=== PATIENT | male | born 2005 | race Caucasian/White ===

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

== ENCOUNTER 2023-12-03 15:26 | Emergency (ER) | payer BC, SELFPAY ==
--- NOTE | ~2023-12-03 | XR_ITS ---
EXAMINATION: XR finger 2nd LT min 2V DATE: 12/03/2023 15:47 INDICATION: Pain at the left second digit post possible injury TECHNIQUE: Dorsal palmar, lateral and oblique views of the left second digit were obtained COMPARISON: None FINDINGS: 2.5 mm proximal distraction of a tiny flake-like volar plate avulsion fracture at the base of the lef t second middle phalanx. No other fractures identified. Joint spaces are normal. Prominent soft tissu e swelling about the base of the second digit. IMPRESSION: 1. Mild distraction of a tiny flake-like volar plate avulsion fracture arising from the base of the l eft second middle phalanx. Reviewed, dictated and finalized at location A. [employer] IMPRESSION: 1. Mild distraction of a tiny flake-like volar plate avulsion fracture arising from the base of the left second middle phalanx.
[2023-12-03 15:36] VITALS: BP 150/83; PULSE 90; RESP 16; TEMP 36.8; O2SAT 99
--- NOTE | 2023-12-03 15:57 | ED.UPPEXIN ---
HPI - Extremity Injury (Upper) General Chief Complaint: Extremity Injury, Upper Stated Complaint: left finger injury Time Seen by Provider: 12/03/23 15:57 Source: patient Mode of arrival: ambulatory Limitations: no limitations History of Present Illness HPI narrative: 18-year-old male presents with complaint of left index finger pain and swelling. States that he was playing basketball today with friends and another player's knee hit his left index finger. States the finger looked dislocated but thinks went back into place on its own. Range of motion decreased due to pain and swelling. Distal neurovascular intact. All systems reviewed and negative except as noted above. Related Data Home Medications Medication Instructions Recorded Confirmed folic acid 1 mg tablet 1 mg PO DAILY 12/03/23 12/03/23 risankizumab-rzaa 360 mg/2.4 mL 360 mg subcut MONTHLY 12/03/23 12/03/23 (150 mg/mL) subcut wearable injector (Skyrizi) Allergies Allergy/AdvReac Type Severity Reaction Status Date / Time No Known Allergies Allergy Verified 12/03/23 16:01 Review of Systems Review of Systems: CONSTITUTIONAL: Denies fever, chills, or sweats. EYES: Denies visual changes, redness, or discharge. ENT: Denies rhinorrhea, congestion, sore throat, or otalgia. CARDIOVASCULAR: Denies chest pain, palpitations, or edema. RESPIRATORY: Denies cough or dyspnea. GASTROINTESTINAL: Denies abdominal pain, nausea, vomiting, or diarrhea. GENITOURINARY: Denies dysuria or hematuria. SKIN: Denies rash or itching. MUSCULOSKELETAL: Denies back pain, joint pain, or myalgia. Reports pain and swelling to left index finger. NEUROLOGIC: Denies headache, numbness, or weakness. PSYCHIATRIC: Denies anxiety or depression. All other systems reviewed are negative, except as documented in HPI. [facility] Past Medical History Medical History Crohn's disease Surgical History Surgical History No pertinent past surgical history Social History Social History Occupation/Education: student Gender identity (if verbalized by the patient): Male Comments At time of signature, agree with nursing past medical, surgical, social and family history. There is no relevant family history pertinent to the presenting complaint. Exam Narrative: GENERAL: This is a well-nourished, well-developed patient, in no apparent distress. HEAD: normocephalic, atraumatic. EYES: PERRL. Sclera clear/white. Vision is grossly intact. EARS: External ears normal NOSE: External nose normal NECK: Neck supple, non-tender without lymphadenopathy, masses or thyromegaly. CARDIOVASCULAR: Regular rate and rhythm without murmurs, gallops, or rubs. RESPIRATORY: Clear to auscultation. Breath sounds equal bilaterally. No wheezes, rales, or rhonchi. SKIN: warm, Dry, intact with no suspicious lesions or rash, good texture and turgor. NEURO: awake, alert, and oriented to person, place and time. There were no obvious focal neurologic abnormalities. EXTREMITIES: Swelling to proximal aspect left index finger. There is a contusion to palmar aspect. Tender on palpation. No deformity Or dislocation noted. Range of motion decreased due to [place]. Distal neurovascularly intact. Course Course Level of Care: Express Care Visit Vital Signs Vital signs: Vital Signs Temperature 36.8 C 12/03/23 15:36 Pulse Rate 90 12/03/23 15:36 Respiratory Rate 16 12/03/23 15:36 Blood Pressure 150/83 H 12/03/23 15:36 Pulse Oximetry 99 12/03/23 15:36 Oxygen Delivery Room Air 12/03/23 15:36 Temperature 36.8 C 12/03/23 15:36 Pulse Rate 90 12/03/23 15:36 Respiratory Rate 16 12/03/23 15:36 Blood Pressure 150/83 H 12/03/23 15:36 Pulse Oximetry 99 12/03/23 15:36 Oxygen Delivery Room Air 12/03/23 15:36 Re
== END 2023-12-03 16:19 | disposition home or self-care (01) ==
PROVIDERS: Emergency Provider Nurse Practitioner Family; PCP Pediatrics
DX: S62.611A Displaced fracture of proximal phalanx of left index finger, initial encounter for closed fracture (principal); W50.0XXA Accidental hit or strike by another person, initial encounter; Y93.67 Activity, basketball; K50.90 Crohn's disease, unspecified, without complications
CPT/HCPCS: 29130; 73140; 99214; G0463

== ENCOUNTER 2025-11-10 10:35 | Emergency (ER) | payer BC, SELFPAY ==
[2025-11-10 10:40] VITALS: BP 128/66; PULSE 79; RESP 16; TEMP 36.5; O2SAT 100
--- NOTE | 2025-11-10 10:40 | ED.SKABFB ---
HPI - Skin/Abscess/Foreign Bdy General Chief complaint: Skin/Abscess/Foreign Body Stated complaint: Bump On Buttocks Time Seen by Provider: 11/10/25 10:49 Source: patient, RN notes reviewed and old records reviewed Mode of arrival: ambulatory Limitations: no limitations History of Present Illness HPI narrative: 20-year-old male presents to the [facility] with a bump between his buttocks. patient states that started on . Was seen at an urgent care yesterday, prescribed Augmentin. history of pilonidal cysts Onset (ago): day(s) (5) Treatments prior to arrival: antibiotic Related Data Home Medications ?Medication ?Instructions ?Recorded ?Confirmed ?Last Taken ?Type folic acid 1 mg tablet 1 mg PO DAILY 12/03/23 12/03/23 Unknown History risankizumab-rzaa 360 mg/2.4 mL 360 mg subcut MONTHLY 12/03/23 11/10/25 Unknown History (150 mg/mL) subcut wearable injector (Skyrizi) amoxicillin 875 mg-potassium tablet 11/10/25 Unknown History clavulanate 125 mg tablet Allergies Allergy/AdvReac Type Severity Reaction Status Date / Time No Known Allergies Allergy Verified 11/10/25 10:49 Review of Systems Review of Systems: All systems reviewed & are unremarkable except as noted in HPI and below Constitutional: Constitutional: Reports no additional constitutional complaints Musculoskeletal: Musculoskeletal: Reports no additional musculoskeletal complaints Integumentary/Breasts: Skin/Breast: Reports as per HPI, Reports skin pain and Reports skin swelling PMFSH Past Medical History Medical History Crohn's disease Surgical History Surgical History No pertinent past surgical history Social History Social History Occupation/Education: student Gender identity (if verbalized by the patient): Male Comments At the time of my signature, I reviewed and agree with the nursing past medical, surgical, social, and family history. There is no relevant family history pertinent to the patient complaint. Exam Const: General: cooperative, healthy appearing, no acute distress, well developed, alert, uncomfortable and well nourished Nutritional Appearance: well nourished Orientation/consciousness: patient oriented x3 Limitations: no limitations HENMT: Head: normal to inspection Eyes: General: appearance normal, both eyes and all related structures Alignment and Position: alignment normal Neck: Neck: normal visual inspection, full ROM, no lymphadenopathy and no meningeal signs Chest: Chest palpation & inspection: normal inspection of the chest Resp: Effort & Inspection: normal respiratory effort and able to speak in complete sentences Cardio: Rate: regular rate Skin: General skin exam: normal color and no rashes or lesions noted Full body images:  1. approximately 3 cm fluctuation, no drainage, surrounding skin more eczema in appearance, dry and flaky. Area is extremely tender to palpation. Neuro: General: patient oriented x3, gait normal, moves all extremities and no meningeal signs Cognition (Neuro): normal cognition Speech: normal speech Gait exam (Neuro): Normal gait present Extrem: General: normal to inspection, full ROM, capillary refill normal and normal gait Psych: Appearance: grossly normal and well kempt Mental Status: mental status grossly normal Speech and movement: Normal speech and movement present and Clear speech present Affect: normal affect Attitude: cooperative Course Course Level of Care: Express Care Visit Vital Signs Vital signs: reviewed Transfer Transfered to: [place] ( Per patient request) Transportation: Other ( POV) Transfer rationale: will try to clean the area with Betadine, patient not tolerating pain. Sending for higher level of care, pain control Accepting physician: Dr. Mary Jane Parks [facility] MDM Narrative Medical decision making narrative: patient in exam room. During exam, cleaning of the area with Betadine, patient is not tolerating pain well. Discussed doing the procedure, opening using lidocaine as well as transfer to higher level of care for better pain control. Patient is choosing to go the ER for further evaluation. Transfer instructions reviewed with patient and his mom. Do not eat or drink until cleared by ER provider. All questions have been answered, and the patient deny any further questions. Some parts of this dictation were generated by voice recognition software and may contain typographical and/or grammatical inaccuracies. Differential Diagnosis Differential Diagnosis: Differential diagnostic considerations for skin/abscess/foreign body issues include abscess of skin or subcutaneous tissue, viral exanthem, dermatophytosis, urticaria, cellulitis, eczema, insect bites, impetigo, contact dermatitis, vasculitis, Pilonidal cyst. Medical Records I have reviewed the following patient records and this information was taken into consideration when formulating the assessment and plan.: previous labs, previous ER visits and previous clinic visits Discharge Plan Discharge Clinical Impression: Pilonidal cyst Patient Disposition: Acute Care Hospital Condition: Stable Additional Instructions: Keep area clean and dry. This will continue to drain for several days. Take antibiotic as prescribed Take Tylenol as needed for pain Check with your doctor who prescribes methotrexate. Follow-up with primary care provider/surgeon Take a Sitz bath with 3 inch of water, Dial soap, 3 tbsp of baking soda and 3 tbsp of plane up since salts. You can apply ice to help or heat whichever feels better. For worsening symptoms go directly to the emergency room Patient Language: Tongan Prescriptions: No Action amoxicillin-pot clavulanate 875-125 mg tablet folic acid 1 mg tablet 1 mg PO DAILY Skyrizi 360 mg/2.4 mL (150 mg/mL) wearable injector 360 mg SUBCUT MONTHLY Follow-up/Referrals: Tess Stanford MD [Primary Care Provider, Pediatrics]
== END 2025-11-10 11:05 | disposition short-term general hospital (02) ==
PROVIDERS: Emergency Provider Nurse Practitioner; PCP Pediatrics
DX: L05.91 Pilonidal cyst without abscess (principal); K50.90 Crohn's disease, unspecified, without complications
CPT/HCPCS: 99212; G0463

== ENCOUNTER 2025-11-10 11:28 | Emergency (ER) | payer BC, SELFPAY ==
--- OUTSIDE RECORDS SUMMARY | 2025-11-09 10:45 | XMS_ITS | Encounter Summary ---
Author Organization [facility] Address [address] [place] [address] Care Team Providers Care Field Administrative Assistant Name Role Phone Lizzy Stanford MD Primary Care Provider [phone] Reason for Referral * Eval and Treat (8-30 Days) - Open Specialty Diagnoses / Procedures Referred By Tomas echevarria Referred To Contact Diagnoses Pilonidal cyst with abscess Procedures OR OFFICE/OUTPATIENT ESTABLISHED MOD MDM 30 MIN OR OFFICE/OUTPATIENT NEW MODERATE MDM 45 MINUTES Cari Jo PA-C [address] [address] Phone: tel: fax: Oneil Finnegan III, MD [address] [place] [address] Phone: tel: fax: Referral ID Status Reason Start Date Expiration Date Visits Re quested Visits Authorized [id number] Open 11/09/2025 11/09/2026 1 1 ANICAL PROJECT ENGINEER Reason for Visit * Reason Comments Abscess Pt states pilonidal cyst, has had one before Encounter Details Date Type Department Care Team (Late st Contact Info) Description 11/09/2025 10:45 AM MECHANICAL PROJECT ENGINEER Office Visit [facility] Katelyn [address] [place] [address] [place] [phone] [facility] Cari Tamayo PA-C [address] [address] Pilonidal cyst with abscess (Primary Dx) Social History Tobacco Use Types Packs/Day Years Used Date Smoking Tobacco: Never Smokeless Tobacco: Never Sex and Gender Information Value Date Recorded Sex Assigned at Not on file Legal Sex Male 10:30 AM MECHANICAL PROJECT ENGINEER Gender Identity Not on file Sexual Orientation Not on file documented as of this encounter Last Filed Vital Signs Vital Sign Reading Time Taken Comments Blood Pressure 145/96 11/09/2025 11:09 AM MECHANICAL PROJECT ENGINEER Pulse 83 11/09/2025 11:09 AM MECHANICAL PROJECT ENGINEER Temperature 36.6 C (97.8 F) 11/09/2025 11:09 AM MECHANICAL PROJECT ENGINEER Respiratory Rate 18 11/09/2025 11:09 AM MECHANICAL PROJECT ENGINEER Oxygen Saturation 99% 11/09/2025 11:09 AM MECHANICAL PROJECT ENGINEER Inhaled Oxygen Concentration - - Weight 72.1 kg (159 lb) 11/09/2025 11:09 AM MECHANICAL PROJECT ENGINEER Height 170.2 cm (5' 7) 11/09/2025 11:09 AM MECHANICAL PROJECT ENGINEER Body Mass Index 24.9 11/09/2025 11:09 AM MECHANICAL PROJECT ENGINEER documented in this encounter Patient Instructions * Attachments The following attachments cannot be sent through Care Everywhere. * Pilonidal Abscess (Kazakh) documented in this encounter Progress Notes * Cari Jo PA-C - 11/09/2025 10:45 AM CST Encounter Diagnosis Name Primary? Pilonidal cyst with abscess Yes Emeka was seen today for abscess. Diagnoses and all orders for this visit: Pilonidal cyst with abscess - amoxicillin-clavulanate (AUGMENTIN) 875-125 mg tablet; Take 1 Tablet by mouth every 12 hours for 7 days. - AMB REFERRAL TO COLORECTAL SURGERY Comment: Patient is low risk for complications, vital signs and exam are reassuring. The following higher risk features were not present this visit: Unstable vital signs Fever Toxic appearance Airway swelling Follow up with balloon dipper, PCP, here, or ED if not improving in 48 hours or earlier if conditionworsens. Subjective History of present illness Emeka Dunham is a 20 y.o. male who presents with recurrence of pilonidal cyst. He has crohnes disease and takes Skyrizi for the skin involvement/ eczema. He has had several (4) flares of abscess inthe cleft, some that he has had opened and drained, but this time it feels deep and is not raised at the surface. He has not had a surgical consult, so we will provide a referral to a local colon and rectal surgeon. Location: Intergluteal cleft Duration: several days ago Progression: worse Severity: moderate Review of Systems Constitutional: no fever, no malaise MS: no joint/muscle pain ENT: no throat/tongue swelling Respiratory: no shortness of breath Neuro: no confusion GI: no vomiting Outpatient Medications Marked as Taking for the 11/09/25 encounter (Office Visit) with Cari Jo PA-C Medication Sig Dispense Refill Skyrizi 360 mg/2.4 mL (150 mg/mL) wearable injector amoxicillin-clavulanate (AUGMENTIN) 875-125 mg tablet Take 1 Tablet by mouth every 12 hours for 7 days. 14 Tablet 0 No Known Allergies There are no active problems to display for this patient. Social History Tobacco Use Smoking status: Never Smokeless tobacco: Never Vaping Use Vaping status: Never Used Objective Vitals: 11/09/25 1109 BP: (!) 145/96 Pulse: 83 Resp: 18 Temp: 97.8 ??F (36.6 ??C) SpO2: 99% General:?well developed, well nourished, no acute distress Eyes: No conjunctival injection or discharge Mouth/Throat: no ulcers, lesions, tongue or uvula swelling Neck: No stridor. Normal ROM Lung: clear, normal work or breathing Heart: Regular rhythm Psychiatric: Affect and mood normal. Interactive and conversant. Alert and oriented Skin: dry, scaling eczema bilaterally both sides of intergluteal cleft Tenderness left side very deep below the sacrum, no opening, fluctuance or discharge Lymphatic: No palpable lymphadenopathy. Non tender nodes ANICAL PROJECT ENGINEER documented in this encounter Plan of Treatment Scheduled Referrals Name Type Priority Associated Diagnoses Order Schedule AMB REFERRAL TO COLORECTAL SURGERY Outpatient Referral Routine Pilonidal cyst with abscess Ordered: 11/09/2025 documented as of this encounter Visit Diagnoses Diagnosis Pilonidal cyst with abscess- Primary documented in this encounter Care Teams Field Administrative Assistant Relationship Specialty Start Date End Date Lizzy Stanford MD [address] [place] [address] PCP - General 11/09/25 documented as of this encounter
[2025-11-10 11:55] VITALS: BP 122/84; PULSE 89; RESP 16; TEMP 36.8; O2SAT 100
--- NOTE | 2025-11-10 12:21 | ED.SKABFB ---
HPI - Skin/Abscess/Foreign Bdy General Chief complaint: Skin/Abscess/Foreign Body Stated complaint: pilonidal cyst Time Seen by Provider: 11/10/25 12:01 Source: patient Mode of arrival: ambulatory Limitations: no limitations History of Present Illness HPI narrative: This is a 20-year-old male with history of pilonidal cysts and Crohn's disease who presents to the ED for a cyst. Patient states that for the past few days ago he has had a pilonidal cyst again. Denies fevers, chills. He has not seen a surgeon for this yet. Related Data Home Medications ?Medication ?Instructions ?Recorded ?Confirmed ?Last Taken ?Type folic acid 1 mg tablet 1 mg PO DAILY 12/03/23 12/03/23 Unknown History risankizumab-rzaa 360 mg/2.4 mL 360 mg subcut MONTHLY 12/03/23 11/10/25 Unknown History (150 mg/mL) subcut wearable injector (Skyrizi) amoxicillin 875 mg-potassium tablet 11/10/25 Unknown History clavulanate 125 mg tablet Allergies Allergy/AdvReac Type Severity Reaction Status Date / Time No Known Allergies Allergy Verified 11/10/25 10:49 Review of Systems Review of Systems: Gen.: Denies fevers or chills Eyes: Denies eye pain or visual change ENT: Denies congestion Respiratory: Denies shortness of breath or cough CV: Denies chest pain or palpitations GI: Denies abdominal pain nausea, emesis or diarrhea denies burning, urgency, frequency or hematuria Musculoskeletal: Denies back pain or muscle pain Neuro: Denies numbness, tingling, weakness or focal weakness Skin: As per HPI Except as documented, all other systems reviewed and negative PMFSH Past Medical History Medical History Crohn's disease Surgical History Surgical History No pertinent past surgical history Social History Social History Occupation/Education: student Gender identity (if verbalized by the patient): Male Exam Narrative: APPEARANCE: No acute distress, nontoxic, resting in bed EYES: EOMI HEENT: Normocephalic, atraumatic, OMM RESPIRATORY: No respiratory distress Clear to auscultation bilaterally with no rhonchi wheezing or rales. CARDIOVASCULAR: Regular rate and rhythm without murmurs rubs or gallops. ABDOMINAL: Soft, nontender, nondistended, no rebound or guarding MUSCULOSKELETAl: Moves all extremities. No clubbing, cyanosis or edema. NEURO: Awake and alert. Following commands, speech normal, no focal deficits SKIN:: 5 x 5 mm area of erythema and fluctuance in the superior gluteal cleft with associated tenderness to palpation PSYCHIATRIC: Normal affect/mood, Course Vital Signs Vital signs: Vital Signs Temperature 98.2 F 11/10/25 11:55 Pulse Rate 89 11/10/25 11:55 Respiratory Rate 16 11/10/25 11:55 Blood Pressure 122/84 11/10/25 11:55 Pulse Oximetry 100 11/10/25 11:55 Temperature 97.6 F 11/10/25 13:49 Pulse Rate 86 11/10/25 13:49 Respiratory Rate 16 11/10/25 13:49 Blood Pressure 120/54 L 11/10/25 13:49 Pulse Oximetry 96 11/10/25 13:49 Procedures Abscess I/D alexandra-rectal: Date of Incision: 11/10/25 Time of Incision: 13:20 Local Anesthetic: lidocaine 1% and with epi Amount of anesthesia used (mL): 3 Technique: incised with #11 blade Amount of fluid expressed (mL): 10 Irrigation: No Packing used?: iodoform I&D Results: Pus and Blood MDM MDM Narrative Medical decision making narrative: 20-year-old male Presenting for abscess/pilonidal cyst. On initial evaluation patient was in no acute distress afebrile, hemodynamic stable. Differentials include but are not limited to: Abscess pilonidal cyst, cellulitis Notable exam findings: 5 x 5 mm area of fluctuance to the superior gluteal cleft Patient was given Toradol. Pilonidal cyst was drained as above, patient tolerated procedure well. He did have a history of staph infection previously so he will be switched from Augmentin to Bactrim. He was given a referral to Dr. Jennings, [facility], to establish care. Patient was agreeable to this plan. Given strict return precautions Differential Diagnosis Differential Diagnosis: Abscess pilonidal cyst, cellulitis Discharge Plan Discharge Clinical Impression: Pilonidal cyst, History of Crohn's disease Patient Disposition: Home Condition: Stable Instructions: Antibiotic Form, Pilonidal Cyst (ED) Additional Instructions: Change packing every other day if desired. If you do not want to change the packing then just removed after 2 days. Change the dressing every day or as it swells. Stop taking the Augmentin. Take Bactrim as prescribed. You were given a referral to Dr. Jennings, family medicine, to establish care if needed. Return to the ED for new or worsening symptoms. For pain, discomfort or temperature greater than or equal to 100.8 ?F please alternate the following 2 medications as needed. First medication- acetaminophen/Tylenol- 1000mg every 6-8 hours as needed for above indications. Second medication- ibuprofen/Motrin-600mg every 6-8 hours as needed for above indication. Patient Language: Occitan Prescriptions: New sulfamethoxazole-trimethoprim [Bactrim DS] 800-160 mg tablet 1 tablet PO Q12H Qty: 10 0RF No Action amoxicillin-pot clavulanate 875-125 mg tablet folic acid 1 mg tablet 1 mg PO DAILY Skyrizi 360 mg/2.4 mL (150 mg/mL) wearable injector 360 mg SUBCUT MONTHLY Follow-up/Referrals: Taras Jennings MD [Physician, Family Practice] Tess Stanford MD [Primary Care Provider, Pediatrics]
[2025-11-10] MEDS: KETOROLAC 30 MG/ML VIAL (*BKC) IM (12:23)
--- NOTE | 2025-11-10 13:48 | PC.NURSE ---
Culture sent to lab.
[2025-11-10 13:49] VITALS: BP 120/54; PULSE 86; RESP 16; TEMP 36.4; O2SAT 96
--- OUTSIDE RECORDS SUMMARY | 2025-11-10 13:54 | XMS_ITS | Clinical Summary ---
Author Organization [facility] Address [address] [place] [address] Care Team Providers Care Prize Fighter Name Role Phone Tess Stanford MD Primary Care Provider [phone] Source Comments [facility],non-owned Affiliates and Associated Physician Practices is amultiple site organization consisting of ambulatory clinics and hospital sitesin [place], [place], [place] and [place]. This disclosure is being madepursuant to the Care Everywhere program and may not contain all information available regarding this patient. Last updated [email or web address] Allergies No known active allergies Medications * Be aware that medications may not be up to date on this document. Alwaysverify current medications with the patient. Montelukast Sodium (SINGULAIR PO) Activ e Cetirizine HCl (ZYRTEC PO) Active ALBUTEROL IN Active Social History Tobacco Use Types Packs/Day Years Used Date Smoking Tobacco: Never Smokeless Tobacco: Never Comments:non smoking househo Sex and Gender Information Value Date Recorded Sex Assigned at Not on file Legal Sex Male 12:43 PM CDT Gender Identity Not on file Sexual Orientation Not on file Last Filed Vital Signs Vital Sign Reading Time Taken Comments Blood Pressure 100/58 07/24/2017 6:44 PM CDT Pulse 84 07/24/2017 6:44 PM CDT Temperature 37.1 C (98.7 F) 07/24/2017 6:44 PM CDT Respiratory Rate 16 07/24/2017 6:44 PM CDT Oxygen Saturation 99% 07/24/2017 6:44 PM CDT Inhaled Oxygen Concentration - - Weight 44.5 kg (98 lb) 07/24/2017 6:44 PM CDT Height 148.6 cm (4' 10.5) 07/24/2017 6:44 PM CD T Body Mass Index 20.13 07/24/2017 6:44 PM CDT Plan of Treatment Health Maintenance Due Date Last Done Comments HIV SCREENING 2018 HPV VACCINE (1 - Male 3-dose series) 2018 MENINGOCOCCAL (Group B) VACC INE SHARED DECISION-MAKING (1 of 2 - Standard) 2019 HEPATITIS C SCREENING 06/03/2021 DTAP/TDAP/TD VACCINES (1 - Tdap) 2022 HEPATITIS B VACCINE (1 of 3 - 19+ 3-dose series) 2022 DEPRESSION SCREENING 11/26/2024 COVID-19 VACCINE (1 - 2024-2 6 season) 2025 INFLUENZA VACCINE (#1) 2025 ZOSTER VACCINE (1 of 2) 2053 HIB VACCINE Aged Out No longer eligi ble based on patient's age to complete this topic MENINGOCOCCAL GROUPS A/C/Y/W VACCINE Aged Out No longer eligible b ased on patient's age to complete this topic PNEUMOCOCCAL VACCINE Aged Out No long er eligible based on patient's age to complete this topic Care Teams Prize Fighter Relationship Specialty Start Date End Date Tess Stanford MD [address] [place] [address] PCP - General Pediatrics 07/24/17
--- OUTSIDE RECORDS SUMMARY | 2025-11-10 13:54 | XMS_ITS | Clinical Summary ---
Author Organization [facility] Address [address] [place] [address] Care Team Providers Care Optic Fibre Drawer Name Role Phone Lizzy Stanford MD Primary Care Provider [phone] Allergies No known active allergies Medications Skyrizi 360 mg/2.4 mL (150 mg/mL) wearable injector 11/02/2025 Active amoxicillin-clav ulanate (AUGMENTIN) 875-125 mg tabletIndication s:Pilonidal cyst with abscess Take 1 Tablet by mouth every 12 hours for 7 days. 14 Tablet 11/09/2025 Active Active Problems No known active problems Encounters Date Type Department Care Team Description 11/09/2025 10:45 AM CLOUD DEVELOPER Office Visit [facility] [address] [place] [address] [facility] Tyler PA-C Pilonidal cyst with abscess (Primary Dx) from Last 3 Months Social History Tobacco Use Types Packs/Day Years Used Date Smoking Tobacco: Never Smokeless Tobacco: Never Sex and Gender Information Value Date Recorded Sex Assigned at Not on file Legal Sex Male 10:30 AM CLOUD DEVELOPER Gender Identity Not on file Sexual Orientation Not on file Last Filed Vital Signs Vital Sign Reading Time Taken Comments Blood Pressure 145/96 11/09/2025 11:09 AM CLOUD DEVELOPER Pulse 83 11/09/2025 11:09 AM CLOUD DEVELOPER Temperature 36.6 C (97.8 F) 11/09/2025 11:09 AM CLOUD DEVELOPER Respiratory Rate 18 11/09/2025 11:09 AM CLOUD DEVELOPER Oxygen Saturation 99% 11/09/2025 11:09 AM CLOUD DEVELOPER Inhaled Oxygen Concentration - - Weight 72.1 kg (159 lb) 11/09/2025 11:09 AM CLOUD DEVELOPER Height 170.2 cm (5' 7) 11/09/2025 11:09 AM CLOUD DEVELOPER Body Mass Index 24.9 11/09/2025 11:09 AM CLOUD DEVELOPER Plan of Treatment Health Maintenance Due Date Last Done Comments DTAP/TDAP/TD VACCINES (7 - T d or Tdap) 08/01/2023 08/01/2013, 2008, 10/17/2004, Additional history exists INFLUENZA VACCINE (#1) 2025 2, 10/11/2021, 08/27/2020, Additional history exists HEPATITIS B VACCINES Completed 06/21/2004, 2003, 2003 HPV VACCINES Completed 08/24/2018, 08/24/2017 Insurance [employer] PPO Care Teams Optic Fibre Drawer Relationship Specialty Start Date End Date Lizzy Stanford MD [address] [place] [address], [address] [place] [address] PCP - General 11/09/25
--- OUTSIDE RECORDS SUMMARY | 2025-11-10 13:54 | XMS_ITS | Encounter Summary ---
Author Organization [facility] Address [address] [place] [address] Care Team Providers Care Radiological Technician Name Role Phone Tess Stanford MD Primary Care Provider [phone] Encounter Details Date Type Department Care Team (Late Contact Info) Description 07/03/2022 Telephone [facility] [address] [place] [address] George Jones, RT Social History Tobacco Use Types Packs/Day Years Used Date Smoking Tobacco: Never Smokeless Tobacco: Never Sex and Gender Information Value Date Recorded Sex Assigned at Not on file Legal Sex Male 6:28 AM CRAB FISHERMAN Gender Identity Not on file Sexual Orientation Not on file documented as of this encounter Plan of Treatment Upcoming Encounters Date Type Department Care Team (Late Contact Info) Description 12/03/2025 10:05 AM CRAB FISHERMAN Hospital Encounter [facility] Operating Room [address] [place] [address] Stephen Garza MD [address] [place] [address] Sage Payne MD [address] [facility] [address] [place] [address] 12/03/2025 10:05 AM CRAB FISHERMAN Anesthesia Event [facility] Operating Room [address] [place] [phone] Frances Alejandro, MINERVA [address] [place] [address] 12/03/2025 10:05 AM CRAB FISHERMAN - 12/03/2025 11:10 AM CRAB FISHERMAN Surgery [facility] Operating Room [address] [place] [phone] Sage Payne MD [address] [facility] [address] [place] [address] PEDIATRIC - COLONOSCOPY Scheduled Procedures Name Priority Associated Diagnoses Date/Ti me PEDIATRIC - COLONOSCOPY IBD (inflammatory bowel disease) 12/03/2025 10:05 AM CRAB FISHERMAN documented as of this encounter Visit Diagnoses Not on filedocumented in this encounter Care Teams Radiological Technician Relationship Specialty Start Date End Date Tess Stanford MD [address] [address] PCP - General 07/04/17 documented as of this encounter
--- OUTSIDE RECORDS SUMMARY | 2025-11-10 13:55 | XMS_ITS | Clinical Summary ---
Author Organization [facility] Address [address] [place] [address] Care Team Providers Care Back Grinder Name Role Phone Tess Stanford MD Primary Care Provider Allergies No known active allergies Medications ondansetron ODT (ZOFRAN-ODT) 4 mg disintegrating tablet Take 1 tablet (4 mg total) by mouth every 8 (eight) hours as needed for nausea or vomiting 20 tablet 06/25/20 25 Active Skyrizi 360 mg/2.4 mL (150 mg/mL) wearable injectorIndication s:Crohn's disease of both small and large intestine without complication (HCC) INJECT 360 MG UNDER THE SKIN EVERY 8 WEEKS 2.4 mL 3 10/26/20 25 Active Skyrizi 360 mg/2.4 mL (150 mg/mL) wearable injectorIndication s:Crohn's disease of both small and large intestine without complication (HCC) INJECT 360 MG UNDER THE SKIN EVERY 8 WEEKS 2.4 mL 3 03/03/20 25 025 Discontinued Active Problems Problem Noted Date Diagnosed Date IBD (inflammatory bowel disease) 04/16/2025 Encounter for monitoring of adalimumab therapy 0 04/13/2023 Encounter for methotrexate monitoring 04/13/2023 Crohn's disease of both small and large intestin e 06/15/2022 Overview (06/15/2022): Added automatically from request for surgery [id number] Singers' nodes 06/21/2016 Hay fever 10/25/2015 Intermittent asthma 10/25/2015 Recurrent sinusitis 10/25/2015 Immunizations Immunization Administration Dates Next Due DTaP 2008, 4,2003,10/06,2003 H1N1 All Forms 12/06/2009 HPV9 08/24/2018,08/24/2017 Hep A, Pediatric 2008,06/21/2007 Hep B, Adolescent or Pediatric 06/21/2004,2002,2003 Hib (PRP-OMP) 02/19/2007, 4,2003,08/10 Hib (PRP-T) 11/12/2015 IPV 06/15/2008, 4,2003,08/10 Influenza LAIV (Nasal) 12/08/2010 Influenza, Quadrivalent, Spl it, Preservative Free, Intramuscular 09/11/2022,10/11/2021,08/27/2020,09/25,08/24/2018,08/24/2017,10/15/2015 ,10/09/2014 Influenza, Split 07/26/2012,08/11/2011, 0 Influenza, Trivalent, Preser vative Free, Intramuscular 10/09/2013 MMR 06/15/2008,06/21/2004 Meningococcal B, OMV (Bexsero) 05/08/2022,2020 Meningococcal MCV4P (Menactra) 09/25/2019 Pneumococcal Conjugate 7-Valent 02/27/20 07,10/17/2004,2003,10/06,2003 Pneumococcal Conjugate PCV 13 09/11/2022 Pneumococcal Polysaccharide PPV23 10/25/2015 Tdap 08/01/2013 Varicella 06/15/2008,10/17/2004 Surgical History Surgery Date Site/Laterality Comments TONSILLECTOMY SINUS SURGERY Medical History Medical History Date Comments Asthma Family History Medical History Relation Name Comments Rheum arthritis Father No Known Problems Mother No Known Problems Sister Celiac disease Neg Hx Crohn's disease Neg Hx Ulcerative colitis Neg Hx Relation Name Status Comments Father Alive Mother Alive Sister Alive Social History Tobacco Use Types Packs/Day Years Used Date Smoking Tobacco: Never Passive Smoke Exposure: Never Smokeless Tobacco: Never Tobacco Cessation:Counseling Given: Not Answered PHQ-2 Answer Date Recorded PHQ-2 Total Score (If total score is 3 or more points, staff should administer the PHQ-9) 0 04/15/2024 PHQ-9 Answer Date Recorded PHQ-9 Total Score 1 04/15/2024 Sex and Gender Information Value Date Recorded Sex Assigned at Not on file Legal Sex Male 6:28 AM SPECIAL EDUCATION INCLUSION TEACHER Gender Identity Not on file Sexual Orientation Not on file Last Filed Vital Signs Vital Sign Reading Time Taken Comments Blood Pressure 119/75 04/09/2025 3:17 PM CDT Pulse 78 04/09/2025 3:17 PM CDT Temperature 36.6 C (97.9 F) 04/15/2024 11:42 AM CDT Respiratory Rate 18 08/03/2023 10:36 AM CDT Oxygen Saturation 98% 04/15/2024 11:42 AM CDT Inhaled Oxygen Concentration - - Weight 73.7 kg (162 lb 7.7 oz) 04/09/2025 3:17 P M CDT Height 169 cm (5' 6.54) 04/09/2025 3:17 PM CDT Body Mass Index 25.8 04/09/2025 3:17 PM CDT Plan of Treatment Upcoming Encounters Date Type Department Care Team (Late st Contact Info) Description 12/03/2025 10:05 AM SPECIAL EDUCATION INCLUSION TEACHER Hospital Encounter [facility] Operating Room [address] [place] [phone] Stephen Garza MD [address] [place] [address] Sage Payne MD [facility] [address] [place] [address] 12/03/2025 10:05 AM SPECIAL EDUCATION INCLUSION TEACHER Anesthesia Event [facility] Operating Room [address] [place] [phone] Frances Alejandro NP [address] [place] [address] 12/03/2025 10:05 AM SPECIAL EDUCATION INCLUSION TEACHER - 12/03/2025 11:10 AM SPECIAL EDUCATION INCLUSION TEACHER Surgery [facility] Operating Room [address] [place] [phone] Sage Payne MD [address] [place] [address] PEDIATRIC - COLONOSCOPY Scheduled Procedures Name Priority Associated Diagnoses Date/Ti me PEDIATRIC - COLONOSCOPY IBD (inflammatory bowel disease) 12/03/2025 10:05 AM SPECIAL EDUCATION INCLUSION TEACHER Health Maintenance Due Date Last Done Comments Hepatitis C Screening 2003 Regular Well Visit/Exam 18-64 2021 DTaP/Tdap/Td Vaccine (7 - Td or Tdap) 08/01/2023 08/01/2013, 2008, 10/17/2004, Additional history exists Depression Screening 04/15/2025 04/15/2024 Covid-19 Vaccine (4 - 2024-2 6 season) 2025 01/04/2022, 04/07/2021, 03/17/2021 Influenza Vaccine (#1) 2025 , 10/11/2021, 08/27/2020, Additional history exists Pneumococcal vaccine <65 (2 of 2 - PCV20 or PCV21) 2053 09/11/2022, 10/25/2015, 02/26/2007, Additional history exists Varicella Vaccines Completed 06/15/2008, 10/17/2004 HPV Vaccines Completed 08/24/2018, 08/24/2017 Meningococcal B Vaccine Completed 05/08/2022, 10/11 Hepatitis B Screening Completed 07/06/2022 , 06/21/2004, 2003, Additional history exists Insurance [employer] ACCESS OOS Vendalize OOS [employer] ACCESS OOS Member Subscriber Plan / Payer (Ef fective 2016-Present) Name:Emeka Cantu Relation to Subscriber:Self Name:Emeka Cantu Payer ID:[id number] (NAIC) Type: ALLIANCE Address: [address] [place] [id number] Advance Directives For more information, please contact: [phone] Documents on File Type Date Recorded Patient Dual Rate Dealer Expl anation Advance Directives and Livin g Will 06/29/2022 1:20 PM Care Teams Back Grinder Relationship Specialty Start Date End Date Tess Stanford MD [address] [place] [address] PCP - General 07/04/17
== END 2025-11-10 13:50 | disposition home or self-care (01) ==
PROVIDERS: Emergency Provider Student in an Organized Health Care Education/Training Program; PCP Pediatrics
DX: L05.91 Pilonidal cyst without abscess (principal); K50.90 Crohn's disease, unspecified, without complications
CPT/HCPCS: 10080; 96372; 99283; J1885